=== PATIENT | female | born 2000 | race Caucasian/White ===

== ENCOUNTER 2021-05-01 12:23 | Emergency (ER) | payer OTHER ==
[2021-05-01 13:18] LABS: BASOPHIL 0.5 % (0-2); EOSINOPHIL 0.8 % (0-5); HCT 39.7 % (37.0-47.0); HGB 13.6 g/dl (12.5-16.0); MCH 30.8 pg (25.0-31.0); MCHC 34.3 g/dL (32.0-36.0); MONOCYTE 6.6 % (0-12); MPV 9.3 fL (6.0-9.5); NEUTROPHIL 69.8 % (41-80); NRBC 0; PLT 190 K/uL (150-400); RBC 4.41 M/uL (4.20-5.40); RDW 12.3 % (11.5-14.0); WBC 7.9 K/uL (4.0-10.5)
[2021-05-01 13:46] LABS: BILIRUBIN - TOTAL 0.5 mg/dL (0.2-1.0); BUN/CREAT RATIO (CALC) 16.1 RATIO; CREATININE 0.56 mg/dL (0.51-0.95); GLOBULIN (CALCULATION) 3.8 g/dL; POTASSIUM 3.9 mmol/L (3.5-5.1); TOTAL PROTEIN 7.8 g/dL (6.4-8.2)
[2021-05-01 13:55] LABS: BILIRUBIN NEGATIVE (NEGATIVE); BLOOD NEGATIVE Ery/uL (NEGATIVE); CLARITY CLOUDY (CLEAR); COLOR YELLOW (YELLOW); GLUCOSE (U) NORMAL (NORMAL); LEUKOCYTES 2+ Leu/uL (NEGATIVE); NITRITE NEGATIVE (NEGATIVE); PROTEIN TRACE (LOW) mg/dL (NEGATIVE); UROBILINOGEN 0.2 mg/dL (0.2-1.0); pH 7.5 (5.0-9.0)
[2021-05-01 13:59] LABS: BACTERIA 1+
== END 2021-05-01 15:25 | disposition home or self-care (01) ==
LOC: FER 12:23
PROVIDERS: Nurse Practitioner Family
DX: R55 Syncope and collapse (principal); R11.10 Vomiting, unspecified; N83.201 Unspecified ovarian cyst, right side; J45.909 Unspecified asthma, uncomplicated; Z88.5 Allergy status to narcotic agent; Z88.6 Allergy status to analgesic agent
CPT/HCPCS: 36415; 80053; 81001; 85025; 87088; J1885; J2405; J7030; Q9967

== ENCOUNTER → 2021-09-01 | Day surgery (SDC) | payer OTHER ==
[~2021-09-01] VITALS: Ht 162.6 cm; Wt 48.5 kg
[~2021-09-01] MED LIST: KETOROLAC TROME10 MG PO; LO LOESTRIN FE1 EACH PO; PERCOCET 5-3251 EACH PO; PREVACID15 M1 PO; PROZAC20 MG PO; SEROQUEL50 MG PO
[2021-09-01 10:06] LABS: BILIRUBIN NEGATIVE (NEGATIVE); BLOOD NEGATIVE Ery/uL (NEGATIVE); CLARITY CLOUDY (CLEAR); COLOR YELLOW (YELLOW); GLUCOSE (U) NORMAL (NORMAL); LEUKOCYTES NEGATIVE Leu/uL (NEGATIVE); NITRITE NEGATIVE (NEGATIVE); PROTEIN NEGATIVE (NEGATIVE); UROBILINOGEN 0.2 mg/dL (0.2-1.0)
[2021-09-01 10:53] LABS: HCT 40.2 % (37.0-47.0); HGB 13.4 g/dl (12.5-16.0); MCH 30.2 pg (25.0-31.0); MCHC 33.3 g/dL (32.0-36.0); MCV 90.5 fL (78.0-100.0); MPV 9.2 fL (6.0-9.5); RBC 4.44 M/uL (4.20-5.40); RDW 12.7 % (11.5-14.0); WBC 6.1 K/uL (4.0-10.5)
== END | disposition home or self-care (01) ==
LOC: FAS 09:43
PROVIDERS: Specialist
DX: N83.201 Unspecified ovarian cyst, right side (principal); K66.0 Peritoneal adhesions (postprocedural) (postinfection); R10.2 Pelvic and perineal pain; K21.9 Gastro-esophageal reflux disease without esophagitis; Z79.2 Long term (current) use of antibiotics; Z79.899 Other long term (current) drug therapy; Z88.5 Allergy status to narcotic agent; Z88.8 Allergy status to other drugs, medicaments and biological substances
CPT/HCPCS: 36415; 81003; 84702; 86304; 86850; 86900; 86901; J0690; J1170; J1885; J2250; J2370; J2405; J2704; J3010